=== PATIENT | female | born 1985 | race Caucasian/White ===

== ENCOUNTER 2016-09-21 15:38 | Emergency (ER) | payer SELFPAY ==
[2016-09-21 16:18] VITALS: BP 122/85
[2016-09-21] MEDS ORDERED: Ibuprofen TAB* 600 MG PO ONE (16:50)
--- NOTE | 2016-09-21 17:17 | ED ---
Skin Complaint - HPI Summary HPI Summary: Rt hand dominant pt here w/ laceration to Rt thumb while at work today. Cut herself on a coffee mug. Sore. Bleeding will not stop despite dressing so came in to get checked. Has not taken anything for pain - would like to try ibuprofen. Tetanus is UTD. No numbness, tingling, or weakness. She denies anti- coagulants but does have a glass of wine nightly. - History of Current Complaint Chief Complaint: EDLacSutureRecheck Time Seen by Provider: 09/21/16 16:45 Stated Complaint: THUMB LAC AT WORK Hx Obtained From: Patient, Family/Photographic Editor - male partner Pain Intensity: 7 - Allergy/Home Medications Allergies/Adverse Reactions: Allergies Allergy/AdvReac Type Severity Reaction Status Date / Time Amoxicillin Allergy Mild Hives Verified 02/09/13 13:09 PMH/Surg Hx/FS Hx/Imm Hx Previously Healthy: Yes Endocrine/Hematology History: Denies: Hx Anticoagulant Therapy, Hx Blood Disorders, Hx Unexplained Bleeding - Immunization History Date of Tetanus Vaccine: Unk Date of Influenza Vaccine: None Immunizations Up to Date: Yes Infectious Disease History: No Infectious Disease History: Denies: Hx of Known/Suspected MRSA, Traveled Outside the [place] in Last 30 Days - Social History Occupation: Employed Full-time Lives: With Family Alcohol Use: Daily Alcohol Amount: glass of wine Hx Substance Use: No Substance Use Type: Reports: None Hx Tobacco Use: Yes Smoking Status (MU): Former Smoker Review of Systems Positive: no symptoms reported Musculoskeletal: Other - see HPI Skin: Other - see HPI Neurological: Negative Psychological: Normal All Other Systems Reviewed And Are Negative: Yes Physical Exam Triage Information Reviewed: Yes Vital Signs On Initial Exam: Initial Vitals Temp Pulse Resp BP Pulse Ox 98.6 F 79 15 145/89 99 09/21/16 15:39 09/21/16 15:39 09/21/16 15:39 09/21/16 15:39 09/21/16 15:39 Vital Signs Reviewed: Yes Appearance: Positive: Well-Appearing, No Pain Distress, Well-Nourished Skin: Positive: Warm - flap laceration over Rt thumb - oozing blood -clean Head/Face: Positive: Normal Head/Face Inspection Eyes: Positive: EOMI ENT: Positive: Hearing grossly normal Respiratory/Lung Sounds: Positive: Breath Sounds Present Cardiovascular: Positive: Pulses are Symmetrical in both Upper and Lower Extremities Musculoskeletal: Positive: Normal, Strength/ROM Intact Neurological: Positive: Normal, Sensory/Motor Intact, Alert, Oriented to Person Place, Time Psychiatric: Positive: Normal Diagnostics - Vital Signs Vital Signs Temp Pulse Resp BP Pulse Ox 09/21/16 16:14 100.1 F 78 16 122/85 100 09/21/16 15:39 98.6 F 79 15 145/89 99 - Laboratory Lab Statement: Any lab studies that have been ordered have been reviewed, and results considered in the medical decision making process. Course/Dx - Diagnoses Provider Diagnoses: Laceration of right thumb Discharge - Discharge Plan Condition: Stable Disposition: OTHER Discharge Disposition Comment: Signed out to Ronna Belcher PA-C for sutures Patient Education Materials: Finger Laceration (ED) Referrals: Non Staff,Doctor [Primary Care Provider] - [facility] [place] [facility] [Outside] Additional Instructions: Keep dressing clean, dry and in place for 48 hours. After this time you may remove to gently wash wound daily with soap and water - rinse well and pat dry with clean cloth then reapply triple antibiotic ointment and clean dressing. Do not soak wound. Rest, ice, compress with dressing and elevate for pain/swelling Follow-up with PCP in 10 days for wound check and suture removal. *if you develop redness, swelling
== END 2016-09-21 18:27 ==
LOC: ED 15:38
DX: S61.011A Laceration without foreign body of right thumb without damage to nail, initial encounter (principal); W26.9XXA Contact with unspecified sharp object(s), initial encounter; Y93.89 Activity, other specified; Y92.9 Unspecified place or not applicable; Z87.891 Personal history of nicotine dependence
CPT/HCPCS: 99282; A9270-GY

== ENCOUNTER 2018-02-23 07:16 | Emergency (ER) | payer BC, OTHER ==
[2018-02-23 07:29] VITALS: BP 135/92
--- NOTE | 2018-02-23 07:53 | UC ---
Complaint Female HPI - HPI Summary HPI Summary: 32 y/o female , 1 day hx of Dysuria , urinary frequency , urgency , pelvic pressure denies any fever, chills, no flank pain , no vaginal discharge - History Of Current Complaint Chief Complaint: UCGU Stated Complaint: URINARY Time Seen by Provider: 02/23/18 07:22 Hx Obtained From: Patient Hx Last Menstrual Period: ~02/02/18 Onset/Duration: Gradual Onset, Lasting Days - 1, Still Present Timing: Constant Severity Initially: Moderate Severity Currently: Moderate Pain Intensity: 5 Pain Scale Used: 0-10 Numeric Character: Burning Aggravating Factor(s): Urination Alleviating Factor(s): Nothing Associated Signs And Symptoms: Negative: Fever, Back Pain, Vaginal Bleeding/ Discharge, Vaginal Discharge, Nausea, Vomiting(# Of Episodes =), Genital Swelling, Genital Blisters - Allergies/Home Medications Allergies/Adverse Reactions: Allergies Allergy/AdvReac Type Severity Reaction Status Date / Time amoxicillin Allergy Hives Verified 02/23/18 07:24 Home Medications: Home Medications Ethinyl Estradiol/Drospirenone [Hannah] 1 tab PO DAILY 02/23/18 [History Confirmed 02/23/18] PMH/Surg Hx/FS Hx/Imm Hx Previously Healthy: Yes Other History Of: Negative For: Anticoagulant Therapy - Surgical History Surgical History: None - Family History Known Family History: Negative: Diabetes - Social History Alcohol Use: Occasionally Alcohol Amount: glass of wine Substance Use Type: None Smoking Status (MU): Former Smoker Length of Time of Smoking/Using Tobacco: 1 PPD x 7-8 Years When Did the Patient Quit Smoking/Using Tobacco: ~2014 Review of Systems All Other Systems Reviewed And Are Negative: Yes Constitutional: Positive: Negative Skin: Positive: Negative Eyes: Positive: Negative ENT: Positive: Negative Respiratory: Positive: Negative Genitourinary: Positive: Dysuria, Frequency, Urgency. Negative: Vaginal/Penile Burning, Vaginal/Penile Itching, Vaginal/Penile Discharge, Vaginal/Penile Pain Motor: Positive: Negative Is Patient Immunocompromised?: No Physical Exam Triage Information Reviewed: Yes Appearance: Well-Appearing, No Pain Distress, Well-Nourished Vital Signs: Initial Vital Signs Temp 98.3 F 02/23/18 07:23 Pulse 88 02/23/18 07:23 Resp 16 02/23/18 07:23 BP 135/92 02/23/18 07:23 Pulse Ox 100 02/23/18 07:23 Vital Signs Reviewed: Yes Eye Exam: Normal Eyes: Positive: Conjunctiva Clear ENT: Positive: Normal ENT inspection, Hearing grossly normal, Pharynx normal Neck: Positive: Supple, Nontender, No Lymphadenopathy Respiratory: Positive: Chest non-tender, Lungs clear, Normal breath sounds Cardiovascular: Positive: RRR, No Murmur, Pulses Normal Abdomen Description: Positive: Nontender, No Organomegaly, Soft. Negative: CVA Tenderness (R), CVA Tenderness (L), Distended, Guarding Bowel Sounds: Positive: Present Skin Exam: Normal Complaint Female Dx - Differential Dx/Diagnosis Provider Diagnosis: UTI (urinary tract infection) Discharge - Sign-Out/Discharge Documenting (check all that apply): Patient Departure All imaging exams completed and their final reports reviewed: No Studies - Discharge Plan Condition: Stable Disposition: HOME Prescriptions: Fluconazole 150 MG TAB* [Diflucan 150 MG TAB*] 150 mg PO ED ONCE #1 tablet Sulfamethox/Trimethoprim DS* [Bactrim DS 800/160 TAB*] 1 tab PO BID #14 tab Patient Education Materials: Urinary Tract Infection in Women (ED) Referrals: No Primary Care Phys,NOPCP [Primary Care Provider] - If Needed - Billing Disposition and Condition Condition: STABLE Disposition: Home
--- NOTE | 2018-02-25 07:17 | ED ---
Progress - Progress Note Progress Note: Final urine culture report demonstrates no growth She is currently on Bactrim DS and Diflucan Please call the patient that she does not appear to have UTI and should start Bactrim DS. If she still has symptoms she can return to urgent care or follow up with primary care doctor for further evaluation. Course/Dx - Diagnoses Provider Diagnoses: UTI (urinary tract infection) Discharge - Sign-Out/Discharge Documenting (check all that apply): Post-Discharge Follow Up All imaging exams completed and their final reports reviewed: No Studies - Discharge Plan Condition: Stable Disposition: HOME Prescriptions: Fluconazole 150 MG TAB* [Diflucan 150 MG TAB*] 150 mg PO ED ONCE #1 tablet Sulfamethox/Trimethoprim DS* [Bactrim DS 800/160 TAB*] 1 tab PO BID #14 tab Patient Education Materials: Urinary Tract Infection in Women (ED) Referrals: No Primary Care Phys,NOPCP [Primary Care Provider] - If Needed - Billing Disposition and Condition Condition: STABLE Disposition: Home
== END 2018-02-23 07:48 | disposition home or self-care (01) ==
LOC: UCCORT 07:16
DX: Z87.891 Personal history of nicotine dependence (principal); N39.0 Urinary tract infection, site not specified; Z88.0 Allergy status to penicillin
CPT/HCPCS: 81003; 87086; 99212; G0463

== ENCOUNTER 2018-08-20 10:23 | Emergency (ER) | payer BC ==
[2018-08-20 10:54] VITALS: BP 130/76
--- NOTE | 2018-08-20 11:28 | UC ---
Neck Pain HPI - HPI Summary HPI Summary: 33 y/o female presents to the urgent care c/o 1. Started to feel pain and tingling in bilateral shoulders, up neck and towards the bottom of her head 3-4 weeks ago. Started seeing chiropractor then without much improvement. Did have imaging in 04/2018 before symptoms. 2. Sinus pressure and congestion x2 weeks. Denies headache. - History of Current Complaint Chief Complaint: UCGeneralIllness Stated Complaint: NECK PAIN, FELIX Time Seen by Provider: 08/20/18 11:27 Hx Obtained From: Patient Hx Last Menstrual Period: 08/05/18 ?: No Onset/Duration Of Injury/Symptoms: Months - a couple years w/ neck pain which worsen 3 weeks ago Timing: Constant Onset/Duration: Gradual Onset, Lasting Weeks - couple of years w/ neck pain, Still Present, Worse Since - 3 weeks ago Severity: Moderate Pain Intensity: 7 Pain Scale Used: 0-10 Numeric Location: Discrete At: - B/L neck pain, Radiates To: - B/L shoulders Character: Aching, Spasmotic Aggravating Factors: Movement Alleviating Factors: OTC Meds Associated Signs & Symptoms: Positive: Paresthesia - mild inglins senation at times over the neck. Negative: Swelling, Redness, Bruising, Fever, Nuchal Rigity, Weakness, Headache - Risk Factors Meningitis Risk Factors: Negative - Allergies/Home Medications Allergies/Adverse Reactions: Allergies Allergy/AdvReac Type Severity Reaction Status Date / Time amoxicillin Allergy Hives Verified 08/20/18 10:48 PMH/Surg Hx/FS Hx/Imm Hx Previously Healthy: Yes Endocrine History: Dyslipidemia Other GI/ History: PCOS Other History Of: Negative For: Anticoagulant Therapy - Surgical History Surgical History: None - Family History Known Family History: Positive: Hypertension, Diabetes - Social History Occupation: Employed Full-time Lives: With Family Alcohol Use: Occasionally Alcohol Amount: glass of wine Substance Use Type: None Smoking Status (MU): Former Smoker Length of Time of Smoking/Using Tobacco: 1 PPD x 7-8 Years When Did the Patient Quit Smoking/Using Tobacco: ~2014 Review of Systems All Other Systems Reviewed And Are Negative: Yes Constitutional: Positive: Negative Skin: Positive: Negative Eyes: Positive: Negative ENT: Positive: Nasal Discharge - yellowish, Sinus Congestion, Sinus Pain/ Tenderness, Other - yellowish PDN Respiratory: Positive: Cough - dry cough Cardiovascular: Positive: Negative Gastrointestinal: Positive: Negative Genitourinary: Positive: Negative Motor: Positive: Negative Neurovascular: Positive: Negative Musculoskeletal: Positive: Other: - b/l neck pain Neurological: Positive: Numbness - neck w/ a tingling sensation at times. Negative: Headache Psychological: Positive: Negative Is Patient Immunocompromised?: No Physical Exam - Summary Physical Exam Summary: Vital Signs Reviewed: Yes General: well developed, well nourished female sitting in the examining w/o any apparent distress. Eyes: Positive: Conjunctiva Clear - -Eyes: sclera and conjunctiva clear, corneas grossly clear, PEERLA, EOMI, no nystagmus, no ptosis,no photophobia, normal fundoscopic exam, normal visual don,, Other: - -Head:scalp atraumatic , NT, no trigger points ENT: Positive: Normal ENT inspection, Hearing grossly normal, Pharynx normal, TMs normal - B/L external ear canals clear, Other: - No TMJ tenderness. Negative: Nasal congestion, Nasal drainage, Tonsillar swelling, Tonsillar exudate Dental Exam: Normal Neck: no surface trauma, open wounds, soft tissue, Point tenderness over both sides of neck w/ spasm; trachea midline, NT over larynx. No subcutaneous emphysema or crepitus. No bony tenderness, step-off or deformity to firm palpation at posterior midline. Decreased ROM with limitation to RT side due to pain;No meningeal signs, no Kernig's or brudzinskis signs. Respiratory: Positive: Chest non-tender, Lungs clear, Normal breath sounds, No respiratory distress Cardiovascular: Positive: RRR, No Murmur, Pulses Normal, Brisk Capillary Refill Abdomen Description: Positive: Nontender, No Organomegaly, Soft. Negative: CVA Tenderness (R), CVA Tenderness (L) Bowel Sounds: Positive: Present Musculoskeletal: Positive: Strength Intact, ROM Intact, No Edema Neurological: Positive: Alert - A&OX3, CNII-XII WNL, speech, memory and expression WNL,, Muscle Tone Normal - Muscle strength 5/5 in both upper and lower extremities. Normal gait, negative Romberg test and good coordination finger to nose, heel to steinberg WNL, sensation intact. Reflexes WNL Psychological Exam: Normal Skin: Positive: warm and dry , no rashes or petechiae observed Triage Information Reviewed: Yes Vital Signs: Initial Vital Signs Temp 98.9 F 08/20/18 10:48 Pulse 68 08/20/18 10:48 Resp 15 08/20/18 10:48 BP 130/76 08/20/18 10:48 Pulse Ox 100 08/20/18 10:48 Neck Pain Course/Dx - Differential Dx/Diagnosis Differential Dx/HQI/PQRI: Arthritis, Cervical Fracture, Sprain, Strain, Torticollis, Other - sinusitis Provider Diagnosis: Neck muscle spasm, Acute bacterial sinusitis Discharge - Sign-Out/Discharge Documenting (check all that apply): Patient Departure - D/c home All imaging exams completed and their final reports reviewed: No Studies - Discharge Plan Condition: Stable Disposition: HOME Prescriptions: Cyclobenzaprine TAB* [Flexeril 10 MG TAB*] 10 mg PO TID PRN #21 tab PRN Reason: Spasms - Neck DOXYcycline CAP(*) [DOXYcycline 100MG CAP(*)] 100 mg PO BID #14 cap Fluticasone NASAL SPRAY 50MCG* [Flonase NASAL SPRAY 50MCG*] 2 spray BOTH NARES DAILY #1 btl methylPREDNISolone [Medrol Dosepak 4 MG*] 4 mg PO .SEE NESTOR INSTRUCTION #1 nestor Patient Education Materials: Sinusitis (ED), Muscle Spasm (ED) Referrals: Suzanne Reeves PA [Primary Care Provider] - 2 Days Ene Tadeo Ae, RN [Registered Nurse] - 3 Days Additional Instructions: 1- Please increase fluid intake and rest. take full course of antibiotics to avoid resistance. Take yogurt w/ probiotics or Culturelle to protect your GI system 2-Use Flonase as directed to help drain fluid. Also buy saline drops to clear sinuses 2- Please continue taking Naproxen PO as directed after meals for pain. Medrol dose nestor as directed to alleviate symptoms 2- Take Flexeril PO as directed for muscle spasm. Please do not drive while taking the medication. 3- Avoid strenuous exercise or heavy lifting. 4- Please call Spinal Nurse Navigator: Jaelyn Tadeo: [phone] for further management of your possible herniated disc and cervical symptoms. - Billing Disposition and Condition Condition: STABLE Disposition: Home
== END 2018-08-20 11:56 | disposition home or self-care (01) ==
LOC: UCCORT 10:23
DX: M54.2 Cervicalgia (principal); J01.90 Acute sinusitis, unspecified; B96.89 Other specified bacterial agents as the cause of diseases classified elsewhere; Z87.891 Personal history of nicotine dependence; Z88.0 Allergy status to penicillin
CPT/HCPCS: 99212; G0463